=== PATIENT | male | born 1995 | race Two or more races ===

== ENCOUNTER → 2025-09-24 | Emergency (ER) | payer OTHER ==
[~2025-09-24] VITALS: Ht 175.3 cm; Wt 122.5 kg
[~2025-09-24] MED LIST: AMOX-CLAV 875-1 EACH PO; CEFAZOLIN SODIUM 1,000 MG VIAL IM ONE; CEFAZOLIN SODIUM 1,000 MG VIAL ONE; DIPHTH,PERTUSS(ACELL),TET VAC 0.5 ML SYRINGE IM ONE; INTESTINEX680 M1 PO; KETOROLAC TROMETHAMINE 15 MG VIAL IM ONE; KETOROLAC TROMETHAMINE 30 MG VIAL ONE; PEPCID AC20 MG PO; TETANUS & DIPHTHERIA TOX,ADULT 0.5 ML VIAL IM ONE
== END | disposition home or self-care (01) ==
LOC: ER 15:44
DX: S61.211A Laceration without foreign body of left index finger without damage to nail, initial encounter (principal); W26.0XXA Contact with knife, initial encounter; Y93.89 Activity, other specified; Y92.69 Other specified industrial and construction area as the place of occurrence of the external cause; Y99.8 Other external cause status
CPT/HCPCS: 12002; 73120; 90471; 90714; J1670

== ENCOUNTER 2025-10-07 21:53 | Emergency (ER) | payer OTHER ==
[~2025-10-07] VITALS: Ht 175.3 cm; Wt 122.5 kg
[~2025-10-07 21:53] MED LIST changes: -CEFAZOLIN SODIUM 1,000 MG VIAL IM ONE; -CEFAZOLIN SODIUM 1,000 MG VIAL ONE; -DIPHTH,PERTUSS(ACELL),TET VAC 0.5 ML SYRINGE IM ONE; -KETOROLAC TROMETHAMINE 15 MG VIAL IM ONE; -KETOROLAC TROMETHAMINE 30 MG VIAL ONE; -TETANUS & DIPHTHERIA TOX,ADULT 0.5 ML VIAL IM ONE
[2025-10-07] MEDS ORDERED: ONDANSETRON HCL 2 MG/ML VIAL IV ONE (22:45)
[2025-10-07] MEDS ORDERED: LACTOBACILLUS ACIDOPHILUS 1 CAP CAP PO ONE ×2 (22:45→23:23)
[2025-10-07] MEDS ORDERED: 0.9 % SODIUM CHLORIDE 1,000 ML IV SCH (22:45)
[2025-10-07] MEDS ORDERED: FAMOTIDINE/PF 20 MG/2 ML VIAL IV ONE (22:45)
[2025-10-07] MEDS ORDERED: ONDANSETRON HCL 2 MG/ML VIAL ONE (23:22)
[2025-10-07] MEDS ORDERED: FAMOTIDINE/PF 20 MG/2 ML VIAL ONE (23:23)
[2025-10-08 00:38] LABS: BASO % 0.5 % (0.1-1.2); EOS # 0.05 (0.04-0.54); EOS % 0.3 % (0.7-7.0); LYMPH # 0.73 (1.18-3.74); LYMPH % 4.7 % (19.3-53.1); MEAN PLATELET VOLUME 10.40 fl (9.4-12.4); MONO # 0.77 (0.24-0.82); MONO % 5.0 % (4.7-12.5); NEUT # 13.79 (1.56-6.13); NEUT % 89.2 % (34.0-71.1); RED CELL DISTRIBUTION WIDTH 12.4 % (11.6-14.4)
[2025-10-08 01:10] LABS: ALT/SGPT 31.0 U/L (12-78); AST/SGOT 14.0 U/L (15-37); BILIRUBIN TOTAL 0.63 mg/dL (0.3-1.2); BUN CREA RATIO 11.0 (7.0-25.0); GFR 63.13; GLOBULINA 3.9 G/DL (2.4-3.5); GLUCOSE FASTING 148.0 mg/dL (65-100); OSMOLALITY SERUM 281.0 MOSM/KG (275-295)
[2025-10-08 01:29] LABS: CREATININE SERUM 1.33 mg/dL (0.70-1.30)
[2025-10-08 02:13] LABS: COVID-19 AG NEGATIVE (NEGATIVE)
[2025-10-08 02:22] LABS: URINE APPEARANCE Clear; URINE BILIRRUBIN Negative (NEGATIVE); URINE BLOOD NHT; URINE COLOR Yellow; URINE GLUCOSE Negative (NEGATIVE); URINE KETONE Trace (NEGATIVE); URINE LEUKOCYTE Negative; URINE NITRATE Negative; URINE PROTEIN 30 (NEGATIVE); URINE UROBILINOGEN 0.2 E.U./dl
[2025-10-08 02:26] LABS: URINE BACTERIA 28.7 uL (0.0-1933); URINE CAST 6.59 uL (0.0-1.40); URINE EPITHELIAL CELLS 18.4 uL (0.0-38.8); URINE RBC 13.0 uL (0.0-20.8); URINE WBC 18.3 uL (0.0-23.2)
[2025-10-08] MEDS ORDERED: INTESTINEX680 M1 PO (05:35)
[2025-10-08] MEDS ORDERED: PEPCID AC20 MG PO (05:35)
[2025-10-08] MEDS ORDERED: ACETAMINOPHEN 500 MG GEL..CAP PO ONE (06:29)
== END 2025-10-08 06:36 | disposition home or self-care (01) ==
LOC: ER 21:54
PROVIDERS: Student in an Organized Health Care Education/Training Program
DX: B34.9 Viral infection, unspecified (principal); K52.89 Other specified noninfective gastroenteritis and colitis; E86.0 Dehydration; Z48.02 Encounter for removal of sutures; Z20.822 Contact with and (suspected) exposure to COVID-19